=== PATIENT | female | born 1995 | race Caucasian/White ===

== ENCOUNTER 2017-02-27 21:37 | Emergency (ER) | payer OTHER ==
--- NOTE | ~2017-02-27 | CR63 ---
[facility] A Service of [facility] & [facility] RADIOLOGY TEXT RESULTS PATIENT: ADI LOCKETT LOCATION: CFTX : [birth year] UNIT #: [id number] AGE: [address]: Alvarez Rosales SEX: F ORDER DR: [id number] [facility] [address] [place], [place] [address] [id number] E MR#: [id number] Acc #: [id number] NAME: ADI LOCKETT : 1995 SEX: F STUDY DATE/TIME: 02/27/2017 22:52 UNIT: [facility] ROOM: STUDY DESCRIPTION: CR Chest 2 View Attending Physician: Alvarez Rosales P.A.-C. Ordering Physician: lAvarez Rosales P.A.-C. Primary Care Physician: Primary Care Physician No MEDICAL IMAGING REPORT This report is preliminary unless electronic signature is present EXAM Chest x-ray, 02/27 at 22:52 hours INDICATION Cough, shortness of air for 2 weeks. Asthma attack. FINDINGS PA and lateral examination of the chest upright shows a good expansion of the parenchyma with a normal distribution of the pulmonary vascularity. There is no indication of congestion, effusion, infiltrate, tumor, or nodular density. The pleural reflections and diaphragmatic contours are normal. The cardiac silhouette and mediastinal anatomy is within normal limits. IMPRESSION Normal chest. Dictated by... Forest Gomez Jr., M.D. THIS IS AN ELECTRONICALLY VERIFIED REPORT Forest Gomez Jr., M.D. at 02/28/2017 9:21 PM Jerilyn TD: 02/28/2017 12:49 JOB #: [id number] MEDICAL IMAGING REPORT Page 1 of 1 COPY
[~2017-02-27 21:37] MED LIST: BACTRIM DS TABL1 TA2 PO; FLAGYL PO; HYDROCODON-ACE1 EAC7 PO; NAPROSYN500 MG PO; NO MEDICATIONS; PHENERGAN25 MG PO
== END 2017-02-28 | disposition home or self-care (01) ==
LOC: CED 21:37 → CFTX 21:37
DX: J45.901 Unspecified asthma with (acute) exacerbation (principal); J20.9 Acute bronchitis, unspecified; F17.210 Nicotine dependence, cigarettes, uncomplicated
CPT/HCPCS: 71020; 94640; 99284